=== PATIENT | male | born 1980 | race Two or more races ===

== ENCOUNTER 2022-04-28 19:50 | Emergency (ER) | payer MEDICAID ==
--- NOTE | 2022-04-28 20:15 | NUR ---
Patient was sitting on [facility] [address] waiting for a bed availability in the ER. No beds available in the ER at this time.
--- NOTE | 2022-04-28 20:21 | NUR ---
While patient was sitting on rescue [address], patient elected not to be seen by ERMD. Patient got of rescue[address] and left ER.
== END 2022-04-28 20:23 | disposition left against medical advice (07) ==
LOC: ER 19:52
DX: Z53.21 Procedure and treatment not carried out due to patient leaving prior to being seen by health care provider (principal)